=== PATIENT | male | born 1995 | race Caucasian/White ===

== ENCOUNTER 2025-08-02 20:16 | Emergency (ER) | payer SELFPAY ==
[~2025-08-02] VITALS: Ht 172.7 cm; Wt 111.0 kg
[2025-08-02 20:32] VITALS: O2SAT 96
[2025-08-02] MEDS: LIDOCAINE/PRILOCAINE CREAM 5 GM TUBE TOP ONE (21:21)
[2025-08-02] MEDS: ACETAMINOPHEN 325MG TABLET PO ONE (21:21)
[2025-08-02 22:12] VITALS: BP 115/85; PULSE 81; RESP 18; TEMP 36.9; O2SAT 98
== END 2025-08-02 22:12 | disposition home or self-care (01) ==
LOC: ER 20:16
DX: N47.2 Paraphimosis (principal); Z79.899 Other long term (current) drug therapy
CPT/HCPCS: 82962; 99283